=== PATIENT | male | born 1980 | race Two or more races ===

== ENCOUNTER 2020-10-22 15:16 | Emergency (ER) | payer BC ==
[~2020-10-22] VITALS: Ht 172.7 cm; Wt 77.0 kg
--- NOTE | 2020-10-22 15:23 | ED.ADGEN ---
General Adult HPI: HPI: Patient is a 40-year-old male who arrives via EMS after being stung on his upper lip by a wasp. Patient developed swelling and became rapidly short of air. Paramedics were contacted and provide the patient with Benadryl, Solu-Medrol, and 2 doses of IV epinephrine. Patient is reporting to feeling much better now. He has some slight pain of his upper lip but does not have any shortness of air, nausea or symptoms otherwise. He is awake, alert and nontoxic-appearing Review of Systems: Review of Systems: Constitutional: Denies fever or chills. [] Eyes: Denies change in visual acuity. [] HENT: Swelling of his upper lip. Denies nasal congestion or sore throat. [] Respiratory: Reports shortness of breath. Denies cough. [] Cardiovascular: Denies chest pain or edema. [] GI: Denies abdominal pain, nausea, vomiting, bloody stools or diarrhea. [] : Denies dysuria. [] Musculoskeletal: Denies back pain or joint pain. [] Integument: Denies rash. [] Neurologic: Denies headache, focal weakness or sensory changes. [] Endocrine: Denies polyuria or polydipsia. [] Lymphatic: Denies swollen glands. [] Psychiatric: Denies depression or anxiety. [] Current Medications: Current Medications Medications (Trade) Dose Ordered Sig/Enrico Start Time Stop Time Status Last Admin Dose Admin Sodium Chloride 1,000 ml @ 1,000 mls/hr 1X ONCE 10/22/20 15:30 10/22/20 16:29 DC 10/22/20 15:23 1,000 MLS/HR Allergies: Allergies: Allergies Uncoded Allergies Type Severity Reaction Last Updated Verified WASP VENOM Allergy Severe Anaphylaxis 10/22/20 Physical Exam: PE: Constitutional: Well developed, well nourished, no acute distress, non-toxic appearance. [] HENT: Patient has some mild swelling of his upper lip on the left side. I do not appreciate a stinger present. The intraoral mucosa is normal-appearing including the tongue. Normocephalic, atraumatic, bilateral external ears normal, oropharynx moist, no oral exudates, nose normal. [] Eyes: PERRLA, EOMI, conjunctiva normal, no discharge. [] Neck: Normal range of motion, no tenderness, supple, no stridor. [] Cardiovascular:Heart rate regular rhythm, no murmur [] Lungs & Thorax: Bilateral breath sounds clear to auscultation [] Abdomen: Bowel sounds normal, soft, no tenderness, no masses, no pulsatile masses. [] Skin: Warm, dry, no erythema, no rash. [] Back: No tenderness, no CVA tenderness. [] Extremities: No tenderness, no cyanosis, no clubbing, ROM intact, no edema. [] Neurologic: Alert and oriented X 3, normal motor function, normal sensory function, no focal deficits noted. [] Psychologic: Affect normal, judgement normal, mood normal. [] Current Patient Data: Vital Signs: Vital Signs Date Time Temp Pulse Resp B/P (MAP) Pulse Ox O2 Delivery O2 Flow Rate FiO2 10/22/20 17:00 93 133/63 (86) 95 Room Air 10/22/20 16:14 97.9 16 97.9 10/22/20 16:00 2.0 EKG: EKG: [] Heart Score: C/O Chest Pain: No Risk Factors: Risk Factors: DM, Current or recent (<one month) smoker, HTN, HLP, family history of CAD, obesity. Risk Scores: Score 0 - 3: 2.5% MACE over next 6 weeks - Discharge Home Score 4 - 6: 20.3% MACE over next 6 weeks - Admit for Clinical Observation Score 7 - 10: 72.7% MACE over next 6 weeks - Early Invasive Strategies Radiology/Procedures: Radiology/Procedures: [] Course & Med Decision Making: Course & Med Decision Making Pertinent Labs and Imaging studies reviewed. (See chart for details) The patient remains awake however he is quite somnolent at this time. I do suspect that is related to receiving IV Benadryl. Nonetheless he denies any difficulty breathing and states he is feeling much better. I have invited him to return should he have any problems breathing or change to his condition otherwise. Both he and his are present and have agreed to return as needed. The patient is nontoxic-appearing and stable for discharge. [] Dragon Disclaimer: Dragon Disclaimer: This electronic medical record was generated, in whole or in part, using a voice recognition dictation system. Departure Departure Impression: Primary Impression: Wasp sting Disposition: HOME / SELF CARE / HOMELESS Condition: IMPROVED Patient Instructions: Bee, Wasp, or Hornet Sting Scripts Epinephrine (EPIPEN 2-LUIZA) 0.3 Mg/0.3 Ml Auto.injct 1 SYR IM ONCE for 1 Day, #1 PACKET 0 Refills Prov: ALONSO ZAPATA DO 10/22/20 Prednisone (PREDNISONE) 50 Mg Tablet 1 TAB PO DAILY for 5 Days, #5 TAB Prov: ALONSO ZAPATA DO 10/22/20 ALONSO ZAPATA DO Oct 22, 2020 15:23
[2020-10-22] MEDS ORDERED: IV NORMAL SALINE 1000ML BAG 1,000 ML IV ONE (15:30)
[2020-10-22] MEDS ORDERED: PRED50TA PO (16:30)
[2020-10-22 17:00] VITALS: BP 133/63
[2020-10-22] MEDS ORDERED: EPIPEN 2-P0.3 MG/0.3 IM (17:15)
== END 2020-10-22 17:25 | disposition home or self-care (01) ==
LOC: ER 15:16
DX: T63.461A Toxic effect of venom of wasps, accidental (unintentional), initial encounter (principal); Z91.030 Bee allergy status; Y92.89 Other specified places as the place of occurrence of the external cause
CPT/HCPCS: 96360; 99285; J7030